=== PATIENT | female | born 1960 | race African-American/Black ===

== ENCOUNTER 2017-02-13 07:30 | Emergency (ER) | payer OTHER ==
[~2017-02-13] VITALS: Ht 167.6 cm; Wt 71.4 kg
[~2017-02-13 07:30] MED LIST: DIFLUCAN150 MG PO; DOXYCYCLINE HY100 MG PO; KEFLEX500 MG PO; NAPROXEN500 MG PO; ZOFRAN ODT4 MG PO
[2017-02-13 08:20] LABS: EOSINOPHIL (%) 0 % (0-5); IMMATURE GRANULOCYTE (%) 0.5 % (0.0-0.7); IMMATURE GRANULOCYTE COUNT 0.1 K/uL; INSTRUMENT ABS NEUTROPHIL CT 14.8 K/uL; LYMPHOCYTE COUNT 1.3 K/uL (1.0-2.8); MCH 29.3 PG (29.0-34.0); MCHC 33.8 G/DL (30.0-36.0); MCV 86.8 FL (83-99); MEAN PLAT.VOLUME 9.2 uM^3 (9.5-12.4); MONOCYTE (%) 8.6 % (3-12); MONOCYTE COUNT 1.5 K/uL (0-0.8); NEUTROPHIL (%) 83.6 % (45-76); NEUTROPHIL COUNT 14.8 K/uL (1.8-6.4); PLATELET COUNT 355 K/uL (156-360); RBC DIS.WIDTH-CV 13.1 % (11.8-14.6); RBC DIS.WIDTH-SD 41.1 % (39-53); RED BLOOD COUNT 4.61 M/uL (3.80-5.20); WHITE BLOOD COUNT 17.7 K/uL (4.1-10.2)
[2017-02-13 08:28] LABS: CHLORIDE 107 mEq/L (99-109); POTASSIUM 3.5 mEq/L (3.7-5.4); SODIUM 141 mEq/L (136-147)
[2017-02-13 08:30] LABS: GLUCOSE 121 mg/dL (70-99)
[2017-02-13 08:32] LABS: ANION GAP 13 MEQ/L (2-14); TOTAL BILIRUBIN 0.3 mg/dL (0.0-1.0)
[2017-02-13 08:34] LABS: ALKALINE PHOSPHATASE 41 IU/L (3-129); GFR ESTIMATE (CALCULATED) 50 mL/min/
[2017-02-13 08:35] LABS: UREA NITROGEN (BUN) 22 mg/dL (9-23)
[2017-02-13] MEDS ORDERED: OXYCODONE H5 MG/5 ML PO (10:00)
[2017-02-13] MEDS ORDERED: NARCAN4 MG NS (10:00)
[2017-02-13 10:10] VITALS: BP 130/87
== END 2017-02-13 10:20 | disposition home or self-care (01) ==
LOC: EME 07:30
PROVIDERS: Physician Assistant
DX: J02.0 Streptococcal pharyngitis (principal); D72.829 Elevated white blood cell count, unspecified; F17.200 Nicotine dependence, unspecified, uncomplicated; Z88.1 Allergy status to other antibiotic agents; Z88.2 Allergy status to sulfonamides; E11.9 Type 2 diabetes mellitus without complications; I10 Essential (primary) hypertension
CPT/HCPCS: 70491; 80053; 83605; 85025; 87040; 87651 90; 99281; 99285; J0561; J1100; J3010; J7120

== ENCOUNTER → 2017-06-01 | Outpatient (CLI) | payer MEDICARE, OTHER ==
[~2017-06-01] MED LIST changes: +NARCAN4 MG NS; +OXYCODONE H5 MG/5 ML PO
== END | disposition home or self-care (01) ==
LOC: CDC
DX: L73.2 Hidradenitis suppurativa (principal)
CPT/HCPCS: 93000

== ENCOUNTER 2017-06-10 06:32 | Emergency (ER) | payer OTHER ==
[~2017-06-10] VITALS: Ht 167.6 cm; Wt 72.5 kg
[2017-06-10 07:13] LABS: ADD MIUA? YES; BILIRUBIN NEGATIVE; BLOOD NEGATIVE; COLOR YELLOW ((YELLOW)); GLUCOSE (STRIP) NEGATIVE; KETONES NEGATIVE; LEUKOCYTES NEGATIVE; NITRITE NEGATIVE; PROTEIN (STRIP) 30; SPECIFIC GRAVITY 1.019 (1.000-1.030); UROBILINOGEN 0.2 MG/DL (0.2-1.0)
[2017-06-10 07:17] LABS: BACTERIA NONE SEEN /HPF; EPITHELIAL CELLS RARE /HPF; MUCUS TRACE /LPF; RED BLOOD CELLS 0-5 /HPF (0-5); UCUL ADDED? NO; WHITE BLOOD CELLS 0-5 /HPF (0-5)
[2017-06-10 07:29] LABS: HEMATOCRIT 44.9 % (36.0-46.0); MCH 29.9 PG (29.0-34.0); MCHC 34.7 G/DL (30.0-36.0); MCV 86.2 FL (83-99); MEAN PLAT.VOLUME 9.6 uM^3 (9.5-12.4); PLATELET COUNT 305 K/uL (156-360); RBC DIS.WIDTH-CV 13.3 % (11.8-14.6); RBC DIS.WIDTH-SD 41.8 % (39-53); RED BLOOD COUNT 5.21 M/uL (3.80-5.20); WHITE BLOOD COUNT 7.2 K/uL (4.1-10.2)
[2017-06-10 08:18] LABS: CHLORIDE 107 mEq/L (99-109); POTASSIUM 3.5 mEq/L (3.7-5.4); SODIUM 138 mEq/L (136-147)
[2017-06-10 08:20] LABS: GLUCOSE 131 mg/dL (70-99)
[2017-06-10 08:21] LABS: ANION GAP 10 MEQ/L (2-14)
[2017-06-10 08:22] LABS: TOTAL BILIRUBIN 0.4 mg/dL (0.0-1.0)
[2017-06-10 08:24] LABS: ALKALINE PHOSPHATASE 49 IU/L (3-129); GFR ESTIMATE (CALCULATED) > 59 mL/min/
[2017-06-10 08:25] LABS: UREA NITROGEN (BUN) 18 mg/dL (9-23)
[2017-06-10 08:27] LABS: LIPASE 38 U/L (1.0-51.0)
[2017-06-10] MEDS ORDERED: ZOFRAN ODT4 MG PO (11:17)
[2017-06-10] MEDS ORDERED: BENTYL10 MG PO (11:17)
[2017-06-10 11:23] VITALS: BP 121/86
== END 2017-06-10 11:25 | disposition home or self-care (01) ==
LOC: EME 06:32
DX: R10.11 Right upper quadrant pain (principal); R19.7 Diarrhea, unspecified; R11.0 Nausea; M54.9 Dorsalgia, unspecified; R05 Cough; F17.200 Nicotine dependence, unspecified, uncomplicated
CPT/HCPCS: 71020; 76705; 80053; 81003; 83690; 85027; 99281; 99284; J1885; J2405; J7030

== ENCOUNTER 2017-07-11 06:02 | Emergency (ER) | payer OTHER ==
[~2017-07-11] VITALS: Ht 167.6 cm; Wt 78.0 kg
[~2017-07-11 06:02] MED LIST changes: +BENTYL10 MG PO
[2017-07-11] MEDS ORDERED: FLAGYL500 MG PO (06:46)
[2017-07-11] MEDS ORDERED: DIFLUCAN150 MG PO (06:46)
[2017-07-11 07:27] VITALS: BP 117/85
[2017-07-13 13:40] LABS: CHLAMYDIA TRACHOMATIS NEGATIVE; NEISSERIA GONORRHOEAE NEGATIVE
== END 2017-07-11 07:30 | disposition home or self-care (01) ==
LOC: EME 06:02
PROVIDERS: Nurse Practitioner Family
DX: N76.0 Acute vaginitis (principal); B37.3 Candidiasis of vulva and vagina; L73.2 Hidradenitis suppurativa; Z90.710 Acquired absence of both cervix and uterus; F17.200 Nicotine dependence, unspecified, uncomplicated
CPT/HCPCS: 87210; 87491; 87591; 99281; 99284

== ENCOUNTER 2017-12-23 11:51 | Day surgery (SDC) | payer OTHER ==
[~2017-12-23] VITALS: Ht 160 cm; Wt 78.0 kg
[~2017-12-23 11:51] MED LIST changes: +AMOXICILLIN875 MG PO; +FLAGYL500 MG PO; +HYDROCHLOROTHIA25 MG PO; +METFORMIN HCL1000 MG PO; +MOTRIN800 MG PO; +NORVASC10 MG PO; +OMEPRAZOLE40 M1 PO; +SINGULAIR10 MG PO; +SYMBICORT60 INHALAT IH; +VENTOLIN HFA18 GM IH; +ZESTRIL40 MG PO
[2017-12-23 13:08] VITALS: BP 131/79
[2017-12-23 15:47] VITALS: BP 130/78
[2017-12-23] MEDS ORDERED: PERCOCET 5/31 TABLET PO (16:24)
[2017-12-23 16:47] VITALS: BP 122/73
[2017-12-23 18:19] VITALS: BP 162/93
== END 2017-12-23 18:35 | disposition home or self-care (01) ==
LOC: SDC 11:51
PROVIDERS: Surgery
PROC: 0JBB0ZZ Excision of Perineum Subcutaneous Tissue and Fascia, Open Approach (ICD-10-PCS; principal; 2017-12-23)
DX: L73.2 Hidradenitis suppurativa (principal); I10 Essential (primary) hypertension; E11.9 Type 2 diabetes mellitus without complications; K21.0 Gastro-esophageal reflux disease with esophagitis; Z79.84 Long term (current) use of oral hypoglycemic drugs; F17.210 Nicotine dependence, cigarettes, uncomplicated; Z88.2 Allergy status to sulfonamides
CPT/HCPCS: 82948; 88304; 93005; 94640; J0690; J1100; J1885; J2250; J2405; J3010; S0020